=== PATIENT | female | born 1970 | race Caucasian/White ===

== ENCOUNTER 2018-12-09 13:12 | Emergency (ER) | payer MEDICAID ==
[2018-12-09] MEDS ORDERED: BENZONATATE 100 MG CAPSULE PO ONE (13:18)
[2018-12-09] MEDS ORDERED: PREDNISONE 20 MG TAB PO ONE (13:18)
[2018-12-09] MEDS ORDERED: AZITHROMYCIN 500 MG TABLET PO ONE (13:18)
[2018-12-09] MEDS ORDERED: IPRATROPIUM/ALBUTEROL (0.5MG/3MG) NEB INH ONE (13:22)
--- NOTE | 2018-12-09 13:23 | Emergency Department Record ---
History of Present Illness - General Chief Complaint: Cough Stated Complaint: COUGH,CHEST CONGESTION Time Seen by Provider: 12/09/18 13:18 Source: Patient Mode of Arrival: Ambulatory Limitations: No limitations - History of Present Illness Initial Comments: 48 yo female presents with cough and congestion with some sore throat for 4 days since . She is a smoker with asthma. She has been using her inhaler. She states the sputum has been productive with subjective fevers. It hurts to cough and swallow. No home oxygen requirements. Dr Tang is her PCP. MD Complaint: Cough, Nasal congestion, Rhinorrhea, Sore throat Onset/Timin -: Days(s) Severity: Moderate Quality: Aching Consistency: Constant Improves With: Nothing Worsens With: Other (Cough) Associated Symptoms: Cough, Ear pain, Fever, Nasal congestion, Rhinorrhea, Sore throat - Related Data Home Medications Medication Instructions Recorded Confirmed Last Taken Bisoprol/Hydrochlorothiazide [Ziac 1 tab PO DAILY 12/09/18 12/09/18 Unknown 5-6.25 mg Tablet] Previous Rx's Medication Instructions Recorded Albuterol Sulfate [Proair Hfa] 1 - 2 puff IH .EVERY 4-6 HOURS PRN 12/09/18 #1 inhaler Azithromycin [Zithromax] 250 mg PO DAILY #4 tablet 12/09/18 Benzonatate [Tessalon Perle] 100 mg PO Q8H #20 capsule 12/09/18 Budesonide/Formoterol Fumarate 10.2 gm IH BID #1 hfa.aer.ad 12/09/18 [Symbicort 160-4.5 Mcg Inhaler] Prednisone [Prednisone 20Mg] 20 mg PO BID #10 tab 12/09/18 Allergies Allergy/AdvReac Type Severity Reaction Status Date / Time doxycycline Allergy Intermediate RASH Verified 12/09/18 13:19 Travel Screening - Travel/Exposure Within Last 30 Days Have you traveled within the last 30 days?: No Review of Systems Constitutional: Reports: Fever, Malaise. Denies: Chills Eyes: Denies: Eye discharge, Eye pain, Photophobia, Vision change ENT: Reports: Congestion, Ear pain, Throat pain Respiratory: Reports: Cough, Dyspnea, Wheezes. Denies: Hemoptysis Cardiovascular: Reports: Chest pain (with coughing) Endocrine: Denies: Fatigue Gastrointestinal: Denies: Abdominal pain, Diarrhea, Nausea, Vomiting Genitourinary: Denies: Dysuria, Urgency Musculoskeletal: Denies: Arthralgia, Back pain, Myalgia Skin: Denies: Bruising, Change in color, Rash Neurological: Denies: Confusion, Headache Psychiatric: Denies: Anxiety Hematological/Lymphatic: Denies: Blood Clots, Easy bleeding, Easy bruising, Swollen glands Past Medical History - SOCIAL HISTORY Smoking Status: Current every day smoker - RESPIRATORY Hx Respiratory Disorders: Yes Hx Asthma: Yes - CARDIOVASCULAR Hx Cardio Disorders: Yes Hx Hypertension: Yes - NEURO Hx Neuro Disorders: No - GI Hx GI Disorders: No - Hx Genitourinary Disorders: No - ENDOCRINE Hx Endocrine Disorders: No - MUSCULOSKELETAL Hx Musculoskeletal Disorders: Yes Hx Arthritis: Yes - PSYCH Hx Psych Problems: No - HEMATOLOGY/ONCOLOGY Hx Hematology/Oncology Disorders: No Family Medical History Hx Cancer: Grandparents Hx Diabetes: Father Hx Heart Disease: Father Hx HTN: Father Physical Exam - General General Appearance: Alert, Oriented x3, Cooperative, No acute distress, Other ( No acute distress) Limitations: No limitations - Head Head exam: Atraumatic, Normocephalic, Normal inspection - Eye Eye exam: Normal appearance, PERRL. negative: Conjunctival injection, Scleral icterus - ENT ENT exam: Normal exam, Mucous membranes dry, Mucous membranes moist, Normal orophraynx, TM's normal bilaterally Ear exam: Normal external inspection Nasal Exam: Discharge (thick clear) Mouth exam: Normal external inspection Teeth exam: Normal inspection Throat exam: Normal inspection. negative: Tonsillar erythema, Tonsillomegaly, Tonsillar exudate, R peritonsillar mass, L peritonsillar mass - Neck Neck exam: Normal inspection, Full ROM. negative: Lymphadenopathy, Tenderness - Respiratory Respiratory exam: Rhonchi, Other (Normal work of breathin but frequent cough). negative: Normal lung sounds bilaterally, Accessory muscle use, Chest wall tenderness, Prolonged expiratory, Respiratory distress, Wheezes - Cardiovascular Cardiovascular Exam: Regular rate, Normal rhythm, Normal heart sounds - GI/Abdominal GI/Abdominal exam: Soft. negative: Tenderness - Rectal Rectal exam: Deferred - exam: Deferred - Extremities Extremities exam: Normal inspection. negative: Tenderness - Back Back exam: Denies: CVA tenderness (R), CVA tenderness (L) - Neurological Neurological exam: Alert, Oriented X3 - Psychiatric Psychiatric exam: Normal affect, Normal mood. negative: Agitated, Anxious - Skin Skin exam: Dry, Intact, Normal color, Warm Course Vital Signs 12/09/18 13:15 Temperature 97.5 F L Pulse Rate 75 Respiratory 20 Rate Pulse Ox 97 - Reevaluation(s) Reevaluation #1: 12/09/18 The vitals were reviewed No fever, tachycardia or hypoxia 12/09/18 13:35 12/09/18 13:45 She is much improved after the Duoneb Her inhalers were also refilled We discussed home care and reasons to return to the ED Smoking cessation was discussed as well Disposition Disposition: Discharge Clinical Impression: Acute asthma exacerbation, Bronchitis Disposition: Home, Self-Care Condition: (1) Good Instructions: Asthma (ED), Acute Bronchitis (ED) Additional Instructions: Call your doctor for the next available follow up appointment Return to the ER for a recheck if worse, any new concerns or questions Take the prescriptions provided as directed Review this ER visit and the tests performed with your family doctor Prescriptions: Albuterol Sulfate [Proair Hfa] 1 - 2 puff IH .EVERY 4-6 HOURS PRN #1 inhaler PRN Reason: Difficulty In Breathing Azithromycin [Zithromax] 250 mg PO DAILY #4 tablet Benzonatate [Tessalon Perle] 100 mg PO Q8H #20 capsule Budesonide/Formoterol Fumarate [Symbicort 160-4.5 Mcg Inhaler] 10.2 gm IH BID # 1 hfa.aer.ad Prednisone [Prednisone 20Mg] 20 mg PO BID #10 tab Forms: Patient Portal Access Time of Disposition: 13:38 Quality - Quality Measures Quality Measures: N/A - Blood Pressure Screening Does Patient Have Any of the Following: No Blood Pressure Classification: Pre-Hypertensive BP Reading Systolic Measurement: 102 Diastolic Measurement: 88 Screening for High Blood Pressure: < Pre-Hypertensive BP, F/U Documented > [ [id number]] Pre-Hypertensive Follow-up Interventions: Referral to alternative/primary care provider.
== END 2018-12-09 14:13 | disposition home or self-care (01) ==
LOC: ER 13:12
DX: J45.901 Unspecified asthma with (acute) exacerbation (principal); J20.9 Acute bronchitis, unspecified; I10 Essential (primary) hypertension; F17.210 Nicotine dependence, cigarettes, uncomplicated
CPT/HCPCS: 99283; 99284; 94640; J7512

== ENCOUNTER 2019-01-17 08:06 | Day surgery (SDC) | payer BC, MEDICAID ==
[2019-01-17] MEDS ORDERED: PROPOFOL 10 MG/ML VIAL IV ONE (08:07)
[2019-01-17] MEDS ORDERED: FENTANYL PF 100MCG/2ML VIAL IV ONE (08:07)
[2019-01-17] MEDS ORDERED: LIDOCAINE 2% MDV (20MG/ML) 20ML VIAL IV ONE (08:07)
--- NOTE | 2019-01-18 07:50 | Operative Note ---
OPERATION: 1. ESOPHAGOGASTRODUODENOSCOPY with biopsy. 2. COLONOSCOPY. PREOPERATIVE DIAGNOSES: 1. Left lower quadrant pain. 2. Family history of colon polyps. 3. Dyspepsia. POSTOPERATIVE DIAGNOSES: 1. Antral gastritis. 2. Sigmoid diverticulosis. PROCEDURE: After informed consent was obtained from the patient, she was placed in the left lateral decubitus position in the endoscopy suite, sedated and monitored by the department of anesthesia. A well-lubricated [id number] gastroscope was placed in the posterior oropharynx under direct visualization and passed to the proximal esophagus. The endoscope was advanced through the proximal, mid, and distal esophagus. The GE junction and esophagus were unremarkable. The gastric body was unrevealing. In the antrum, there were some adherent heme flecks noted. There were some scattered erythematous changes well. The pylorus, duodenal bulb, and sweep were unremarkable. J-turn views of the proximal stomach were unrevealing. The endoscope was then straightened and antral biopsies obtained. The endoscope removed from the patient with no new findings noted. Digital rectal exam was unremarkable. A well-lubricated [id number] colonoscope was inserted into the rectum and advanced to the cecum. Preparation quality was good. The cecum, cecal bulb, ileocecal valve, and appendiceal orifice were inspected several times. Several insertions of the cecum were obtained. The cecum, ascending colon, transverse colon, and descending colon revealed no polyps, mas lesions, or inflammation. The sigmoid colon demonstrated moderate diverticular changes. No inflammation or polyps were seen. The rectum was unremarkable in forward and J-turn views. The endoscope was straightened, the rectal ampulla deflated, and the endoscope was removed. RECOMMENDATIONS: The patient should follow a high-fiber diet. I will offer her antisecretory medication for her gastritis. She should undergo repeat colonoscopy in 5 years and continue on a fiber supplement if possible. As always, thank you for allowing me to participate in the healthcare of your patients. CC: MD LAURIE Maldonado
== END 2019-01-17 10:00 | disposition home or self-care (01) ==
LOC: HOP 08:06
PROVIDERS: ATTEND Internal Medicine Gastroenterology
DX: R10.32 Left lower quadrant pain (principal); K57.30 Diverticulosis of large intestine without perforation or abscess without bleeding; Z83.71 Family history of colonic polyps; R10.13 Epigastric pain; K29.70 Gastritis, unspecified, without bleeding; I10 Essential (primary) hypertension; E11.9 Type 2 diabetes mellitus without complications; R60.9 Edema, unspecified; J45.909 Unspecified asthma, uncomplicated
CPT/HCPCS: 45378; 43239; 00813; J3010